=== PATIENT | male | born 1970 | race Caucasian/White ===

== ENCOUNTER 2021-06-29 14:20 | Emergency (ER) | payer OTHER ==
[~2021-06-29] VITALS: Ht 180.3 cm; Wt 136.1 kg
[2021-06-29 14:56] LABS: BASOPHIL 0.8 % (0-2); EOSINOPHIL 0.9 % (0-5); HCT 42.2 % (42.0-52.0); LYMPHOCYTE 40.1 % (15-48); MCH 28.9 pg (25.0-31.0); MCHC 30.8 g/dL (32.0-36.0); MCV 93.8 fL (78.0-100.0); MONOCYTE 5.2 % (0-12); MPV 10.4 fL (6.0-9.5); NEUTROPHIL 47.4 % (41-80); NRBC 0; PLT 224 K/uL (150-400); RDW 14.3 % (11.5-14.0)
[2021-06-29 15:04] LABS: WBC 10.6 K/uL (4.0-10.5)
[2021-06-29 15:07] LABS: INR 2.42 (0.9-1.2); PROTHROMBIN TIME 25.4 SECONDS (11.8-13.4)
[2021-06-29 15:08] LABS: PTT 42.2 SECONDS (24.4-34.7)
[2021-06-29 15:17] LABS: ALBUMIN 2.5 g/dL (3.4-5.0); BILIRUBIN - TOTAL 0.1 mg/dL (0.2-1.0); BUN/CREAT RATIO (CALC) 11.4 RATIO; CREATININE 1.32 mg/dL (0.67-1.17); GLOBULIN (CALCULATION) 3.4 g/dL; POTASSIUM 3.8 mmol/L (3.5-5.1); TOTAL PROTEIN 5.9 g/dL (6.4-8.2)
[2021-06-29 15:30] LABS: C-REACTIVE PROTEIN 1.5 mg/dL (<=0.90)
[2021-06-29 15:59] LABS: BILIRUBIN NEGATIVE (NEGATIVE); BLOOD 3+ Ery/uL (NEGATIVE); CLARITY CLEAR (CLEAR); COLOR YELLOW (YELLOW); GLUCOSE (U) TRACE mg/dL (NORMAL); LEUKOCYTES NEGATIVE Leu/uL (NEGATIVE); NITRITE NEGATIVE (NEGATIVE); PROTEIN 3+ mg/dL (NEGATIVE); UROBILINOGEN 0.2 mg/dL (0.2-1.0); pH 7.5 (5.0-9.0)
[2021-06-29 16:05] LABS: BACTERIA 1+; URINARY RBC TNTC
[2021-06-29 16:06] LABS: SPERM PRESENT
[2021-06-29 21:01] LABS: ALBUMIN 3.1 g/dL (3.4-5.0); BILIRUBIN - TOTAL 0.3 mg/dL (0.2-1.0); BUN/CREAT RATIO (CALC) 12.3 RATIO; CREATININE 1.71 mg/dL (0.67-1.17); PHOSPHORUS 5.2 mg/dL (2.6-4.7); POTASSIUM 4.5 mmol/L (3.5-5.1); TOTAL PROTEIN 7.1 g/dL (6.4-8.2)
[2021-06-29 21:06] LABS: LACTIC ACID 3.1 mmol/L (0.4-1.9)
[2021-06-30 04:58] LABS: BARBITURATES NEGATIVE (NEGATIVE); ECSTASY (MDMA) NEGATIVE (NEGATIVE); MARIJUANA (THC) POSITIVE (NEGATIVE); METHADONE NEGATIVE (NEGATIVE); OPIATES NEGATIVE (NEGATIVE)
[2021-06-30 04:59] LABS: AMPHETAMINES NEGATIVE (NEGATIVE); OXYCODONE NEGATIVE (NEGATIVE)
[2021-06-30 05:25] LABS: HCT 44.9 % (42.0-52.0); HGB 14.5 g/dl (13.2-18.0); MCH 28.5 pg (25.0-31.0); MCHC 32.3 g/dL (32.0-36.0); MPV 9.7 fL (6.0-9.5); RBC 5.09 M/uL (4.70-6.00); RDW 14.8 % (11.5-14.0); WBC 18.3 K/uL (4.0-10.5)
[2021-06-30 05:27] LABS: MCV 88.2 fL (78.0-100.0)
[2021-06-30 06:05] LABS: ALBUMIN 2.8 g/dL (3.4-5.0); BILIRUBIN - TOTAL 0.3 mg/dL (0.2-1.0); CREATININE 2.93 mg/dL (0.67-1.17); GLOBULIN (CALCULATION) 3.6 g/dL; MAGNESIUM 1.9 mg/dL (1.8-2.4); PHOSPHORUS 2.6 mg/dL (2.6-4.7); POTASSIUM 3.9 mmol/L (3.5-5.1); TOTAL PROTEIN 6.4 g/dL (6.4-8.2)
== END 2021-06-30 13:24 | disposition expired ==
LOC: EDBD 14:20 → FER 14:20
PROVIDERS: Emergency Medicine
DX: G93.1 Anoxic brain damage, not elsewhere classified (principal); I46.8 Cardiac arrest due to other underlying condition; R09.02 Hypoxemia; R57.9 Shock, unspecified; J18.0 Bronchopneumonia, unspecified organism; E11.9 Type 2 diabetes mellitus without complications; F17.210 Nicotine dependence, cigarettes, uncomplicated; Z86.16 Personal history of COVID-19; Z20.822 Contact with and (suspected) exposure to COVID-19
CPT/HCPCS: 36415; 36600; 70450; 71045; 71275; 80053; 80305; 81001; 82550; 82553; 82728; 82803; 83605; 83735; 83880; 84100; 84145; 85025; 85379; 85610; 85730; 86140; 87088; 92950; 93005; 94002; 96365; 96366; 96368; 96372; 96375; 96376; C9113; J1644; J2543; J3370; J3490; J7030; J7050; J7120; Q9967; U0002